=== PATIENT | female | born 1990 | race African-American/Black ===

== ENCOUNTER 2018-07-05 12:24 | Emergency (ER) | payer OTHER ==
[~2018-07-05] VITALS: Ht 175.3 cm; Wt 123.4 kg
[~2018-07-05 12:24] MED LIST: NITR100C44 PO
[2018-07-05 13:55] VITALS: BP 119/80
[2018-07-05] MEDS ORDERED: IBUPROFEN 800 MG TAB PO ONE (15:00)
== END 2018-07-05 16:00 | disposition home or self-care (01) ==
LOC: ER 12:26
DX: M79.671 Pain in right foot (principal); X58.XXXA Exposure to other specified factors, initial encounter; Y93.01 Activity, walking, marching and hiking; Y92.89 Other specified places as the place of occurrence of the external cause; Y99.8 Other external cause status
CPT/HCPCS: 73610; 73630